=== PATIENT | male | born 1990 | race Caucasian/White ===

== ENCOUNTER 2016-10-21 14:38 | Emergency (ER) | payer OTHER ==
[~2016-10-21] VITALS: Ht 182.9 cm; Wt 79.5 kg
[2016-10-21 14:45] VITALS: BP 154/98; PULSE 84; RESP 14; O2SAT 98
--- NOTE | 2016-10-21 16:01 | ED.REPORT ---
HPI-Extremity Problem Upper Date of Service October 21, 2016 ED Provider: Doc,Ed MD History of Present Illness: piece of glass into right arm, happened around 11 am today at work. right hand dominant. last tdap 2013. primary care is no one. x-ray taken. minimal discomfort unless making a fist. given an injection of antibiotics earlier. Nursing Notes Stated Complaint: RIGHT ARM INJURY Chief Complaint: Extremity Trauma Nursing Notes Reviewed: Yes Allergies: Coded Allergies: No Known Allergies (Unverified , 10/21/16) General Time Seen by MD: 16:01 Chief Complaint Arm injury right Hx Obtained From: Patient Onset Occurred: 1 - 4 hours ago Symptom Duration: Since onset Past Medical History Past Medical History Denies: Asthma Past Surgical History denies Smoking History Current Every Day Smoker (1/2 pack a day for 13 years) Social History Alcohol Use: Denies alcohol use Drug Use: THC Occupation lives with girlfriend and works for [employer] 10/21/2016 Is moving to a new job in [place] in 1 week Ambulatory Status Independent Review of Systems Basic Review of Systems Eyes: Vision NL, No discharge : No dysuria, No frequency Psychiatric: Normal thought content Physical Exam Initial Vital Signs Vital Signs (First) Date Time Temp Pulse Resp B/P Pulse Ox O2 Delivery O2 Flow Rate FiO2 10/21/16 14:45 36.8 84 14 154/98 98 Room Air Initial VS: Reviewed, Vital signs normal General/Constitutional: Well-developed, Well-nourished Head / Eyes: Atraumatic, Normocephalic, PERRL ENT: Mucous membranes moist, Conjunctiva normal, No scleral icterus Neck: Supple, Non-tender, Full range of motion Respiratory: Breath sounds normal, Clear to auscultation, No respiratory distress Cardiovascular: Regular rate & rhythm, Heart sounds normal, Intact distal pulses Abdomen / GI: Soft, Non-tender, No guarding, No rebound, No distention Back: No CVA tenderness Lymphatic: No lymphadenopathy Lower Extremities: Vascular intact, Neuro intact, No swelling, No tenderness Skin: Warm, Dry, No cyanosis Neurologic: Alert, Oriented, Nonfocal Psychiatric: Mood/affect normal, Behavior normal, Normal thought content General/Constitutional: Awake, Alert, No acute distress, Well appearing, Well developed Respiratory / Chest: Atraumatic, Breath sounds NL, Breath sounds = bilat Cardiovascular: Heart rate NL, Regular rhythm, Heart sounds NL small puncture wound in right forearm. small area of swelling on mid forearm. Interpretation & Diagnostics US Soft Tissue/Musculoskeletal PROCEDURE: US EXTREMITY SONOGRAM LIMITED ([id number]) INDICATIONS: glass in right forearm, 1 piece? How deep? Marker TECHNIQUE: Real-time scanning was performed of the right forearm, with image documentation. COMPARISON: None. FINDINGS: 13 mm diameter echogenic foreign body within the soft tissues of the right forearm. IMPRESSION: Soft tissue foreign body as above. Dictated by: Silvia Collazo M.D. on 10/21/2016 at 17:47 Approved by: Silvia Collazo M.D. on 10/21/2016 at 17:47 Procedures Procedure Notes: Injected with 1 % lidocaine and epi. T shaped incision made. No palpable glass felt or heard with exploration. Wound washed and closed with 5.0 nylon Re-Eval/Medical Decision Med Decision/Clinical Course Consult with Dr. Castano. Unable to remove glass. With upcoming move [place] of state, will see patient this coming week. Unable to palpabate glass in wound or hear it with exploration. No sign of compartment syndrome or fracture. Discharge & Departure Impression: Primary Impression: Retained glass fragment Disposition: Home Patient Instructions: Soft Tissue Foreign Body (GEN) Additional Instructions: You have a piece of windshield glass in your arm. The ultrasound showed that it was near the surface and it was marked. I was unable to locate or feel the object on exploration. Please follow with ortho for removal. Start keflex 500 mg 3 times a day for 10 days. Can use hydrocodone 1 up to 2 times a day as needed for pain. Call Dr. Castano for a follow up appointment. Referrals: Herber Castano MD EDSupervising Provider for [facility]: Jesse Aviles MD copies to: Herber Castano MD, Sue ARNP October 21, 2016 16:01
[2016-10-21] MEDS ORDERED: Lidocaine 1%-Epi 1:100,000 20 mL Inj ONE (17:01)
[2016-10-21] MEDS ORDERED: Lidocaine 1%/Epi 1:100,000 30 mL MDV INFILTRATE ONE (17:05)
--- NOTE | 2016-10-21 17:49 | DRSVH ---
PROCEDURE: US EXTREMITY SONOGRAM LIMITED ([id number]) INDICATIONS: glass in right forearm, 1 piece? How deep? Marker TECHNIQUE: Real-time scanning was performed of the right forearm, with image documentation. COMPARISON: None. FINDINGS: 13 mm diameter echogenic foreign body within the soft tissues of the right forearm. IMPRESSION: Soft tissue foreign body as above. Dictated by: Silvia Collazo M.D. on 10/21/2016 at 17:47 Approved by: Silvia Collazo M.D. on 10/21/2016 at 17:47
[2016-10-21 18:12] VITALS: BP 137/80; PULSE 72; RESP 16; O2SAT 99
== END 2016-10-21 18:14 | disposition home or self-care (01) ==
LOC: SED 14:38
DX: Z18.81 Retained glass fragments (principal); X58.XXXA Exposure to other specified factors, initial encounter; Y92.59 Other trade areas as the place of occurrence of the external cause; Y93.89 Activity, other specified; Y99.0 Civilian activity done for income or pay; F17.200 Nicotine dependence, unspecified, uncomplicated